=== PATIENT | female | born 1975 | race Caucasian/White ===

== ENCOUNTER 2019-08-09 09:55 | Emergency (ER) | payer BC ==
--- NOTE | 2019-08-09 09:58 | ERPHSYRPT ---
- History of Present Illness Time Seen by Provider: 08/09/19 09:58 Historian: patient Exam Limitations: no limitations Physician History: 43 y/o white female on no meds, nkda presents with substernal central nonradiating cp described as pressure with associated high bp. pt has a family hx of cadz. she is not a smoker. pt felt dizzy as though she was going to pass out. bp taken and was high so told to go to ed. no fall and no head trauma. 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 she is always unsure when he is going to lash out. worse since spring started. pt has a h/o leukocytosis Timing/Duration: today Activities at Onset: none Quality: pressure Location: substernal, central Chest Pain Radiation: no radiation Severity of Pain-Max: mild Severity of Pain-Current: none Modifying Factors: Improves With: nothing Associated Symptoms: dizziness Prior Chest Pain/Cardiac Workup: no prior chest pain Nitro Today/Relief: no nitro taken today Aspirin Treatment Today: no aspirin today Allergies/Adverse Reactions: No Known Drug Allergies Allergy (Unverified 08/09/19 10:07) Home Medications: No Reportable Medications [No Reported Medications] 08/09/19 [History] - Review of Systems Constitutional: No Symptoms Eyes: No Symptoms Ears, Nose, & Throat: No Symptoms Respiratory: No Symptoms Cardiac: Chest Pain Abdominal/Gastrointestinal: No Symptoms Genitourinary Symptoms: No Symptoms Musculoskeletal: No Symptoms Skin: No Symptoms Neurological: Dizziness Psychological: No Symptoms Endocrine: No Symptoms Hematologic/Lymphatic: No Symptoms Immunological/Allergic: No Symptoms All Other Systems: Reviewed and Negative - Past Medical History Neurological History: No Pertinent History Cardiac History: No Pertinent History Respiratory History: No Pertinent History Endocrine Medical History: No Pertinent History Other Medical History: WBC HAS BEEN ELEVATED WHICH IS BEING MONITORED - Past Surgical History Past Surgical History: No Neuro Surgical History: No Pertinent History Cardiac: No Pertinent History Respiratory: No Pertinent History Gastrointestinal: No Pertinent History Genitourinary: No Pertinent History Musculoskeletal: No Pertinent History Female Surgical History: No Pertinent History - Nursing Vital Signs Nursing Vital Signs: Initial Vital Signs Temperature 97.2 F 08/09/19 09:59 Pulse Rate 115 H 08/09/19 09:59 Respiratory Rate 18 08/09/19 09:59 O2 Sat by Pulse Oximetry 96 08/09/19 09:59 Pain Scale Pain Intensity 2 - Physical Exam General Appearance: no apparent distress, alert, anxiety Eye Exam: PERRL/EOMI, eyes nml inspection Ears, Nose, Throat Exam: normal ENT inspection, moist mucous membranes Neck Exam: normal inspection, non-tender, supple, full range of motion Respiratory Exam: normal breath sounds, chest tenderness, lungs clear, airway intact, No respiratory distress Cardiovascular Exam: regular rate/rhythm, normal heart sounds, normal peripheral pulses Gastrointestinal/Abdomen Exam: soft, normal bowel sounds, No tenderness Pelvic Exam: not done Rectal Exam: not done Back Exam: normal inspection, normal range of motion, No CVA tenderness, No vertebral tenderness Extremity Exam: normal inspection, normal range of motion, pelvis stable Neurologic Exam: alert, oriented x 3, cooperative, can tender II-XII nml as tested, normal mood/affect, nml cerebellar function, nml station & gait, sensation nml Skin Exam: normal color, warm, dry Lymphatic Exam: No adenopathy SpO2 Interpretation: normal O2 Delivery: Room Air - Course Nursing assessment & vital signs reviewed: Yes EKG Interpreted by Me: RATE (93), Sinus Rhythm, NORMAL AXIS, NORMAL INTERVALS, NORMAL QRS, Non-specific ST Changes, Other (no comparison ekg) Ordered Tests: Active Orders 24 hr Category Date Time Status EKG-ER Only STAT Care 08/09/19 10:18 Active IV Insertion STAT Care 08/09/19 10:18 Active Pulse Oximetry (ED) STAT Care 08/09/19 10:18 Active CHEST 1 VIEW (PORTABLE) Stat Exams 08/09/19 10:18 Completed HEAD WITHOUT CONTRAST [CT] Stat Exams 08/09/19 10:24 Completed CBC W DIFF Stat Lab 08/09/19 10:22 Completed CMP Stat Lab 08/09/19 10:22 Completed D-DIMER QUANTITATIVE Stat Lab 08/09/19 10:22 Completed NT PRO BNP Stat Lab 08/09/19 10:22 Completed PROTIME WITH INR Stat Lab 08/09/19 10:22 Completed TROPONIN Q3H Lab 08/09/19 10:22 Completed TROPONIN Q3H Lab 08/09/19 13:30 Ordered TROPONIN Q3H Lab 08/09/19 16:30 Ordered TROPONIN Q3H Lab 08/09/19 19:30 Ordered TROPONIN Q3H Lab 08/09/19 22:30 Ordered Medication Summary Discontinued Medications Generic Name Dose Route Start Last Admin Trade Name Terrance PRN Reason Stop Dose Admin Aspirin 324 mg 08/09/19 10:18 08/09/19 10:23 Baby Aspirin 81 Mg Chew PO 08/09/19 10:19 324 mg STAT ONE Administration Aspirin Confirm 08/09/19 10:20 Baby Aspirin 81 Mg Chew Administered 08/09/19 10:21 Dose 324 mg .ROUTE .STK-MED ONE Lab/Rad Data: Laboratory Result Diagrams 08/09/19 10:22 08/09/19 10:22 Laboratory Results 08/09/19 08/09/19 08/09/19 Range/Units 10:22 10:22 10:22 WBC (4.0-10.5) K/mm3 RBC (4.1-5.4) M/mm3 Hgb (12.0-16.0) gm/dl Hct (35-47) % MCV (78-100) fl MCH (26-32) pg MCHC (32-36) g/dl RDW (11.5-14.0) % Plt Count (150-450) K/mm3 MPV (7.5-11.0) fl Gran % (36.0-66.0) % Eos # (Auto) (0-0.5) Absolute Lymphs (auto) (1.0-4.6) Absolute Monos (auto) (0.0-1.3) Lymphocytes % (24.0-44.0) % Monocytes % (0.0-12.0) % Eosinophils % (0.00-5.0) % Basophils % (0.0-0.4) % Absolute Granulocytes (1.4-6.9) Basophils # (0-0.4) PT 12.2 (9.95-12.35) SECONDS INR 1.08 (0.8-3.0) D-Dimer 388 (215-500) ng/mL Sodium 141 (137-145) mmol/L Potassium 3.8 (3.5-5.1) mmol/L Chloride 104 (98-107) mmol/L Carbon Dioxide 24 (22-30) mmol/L Anion Gap 16.1 H (5-15) MEQ/L BUN 8 (7-17) mg/dL Creatinine 0.54 (0.52-1.04) mg/dL Estimated GFR > 60.0 ML/MIN Glucose 112 H (74-106) mg/dL Calcium 9.4 (8.4-10.2) mg/dL Total Bilirubin 0.40 (0.2-1.3) mg/dL AST 28 (14-36) U/L ALT 29 (0-35) U/L Alkaline Phosphatase 79 (38-126) U/L Troponin I < 0.012 (0.000-0.034) ng/mL NT-Pro-B Natriuret Pep 21.8 (0-450) pg/mL Serum Total Protein 8.3 H (6.3-8.2) g/dL Albumin 4.5 (3.5-5.0) g/dL 08/09/19 Range/Units 10:22 WBC 8.1 (4.0-10.5) K/mm3 RBC 4.07 L (4.1-5.4) M/mm3 Hgb 12.2 (12.0-16.0) gm/dl Hct 37.3 (35-47) % MCV 91.6 (78-100) fl MCH 30.0 (26-32) pg MCHC 32.7 (32-36) g/dl RDW 13.3 (11.5-14.0) % Plt Count 419 (150-450) K/mm3 MPV 9.9 (7.5-11.0) fl Gran % 52.3 (36.0-66.0) % Eos # (Auto) 0.35 (0-0.5) Absolute Lymphs (auto) 2.76 (1.0-4.6) Absolute Monos (auto) 0.69 (0.0-1.3) Lymphocytes % 34.0 (24.0-44.0) % Monocytes % 8.5 (0.0-12.0) % Eosinophils % 4.3 (0.00-5.0) % Basophils % 0.9 (0.0-0.4) % Absolute Granulocytes 4.24 (1.4-6.9) Basophils # 0.07 (0-0.4) PT (9.95-12.35) SECONDS INR (0.8-3.0) D-Dimer (215-500) ng/mL Sodium (137-145) mmol/L Potassium (3.5-5.1) mmol/L Chloride (98-107) mmol/L Carbon Dioxide (22-30) mmol/L Anion Gap (5-15) MEQ/L BUN (7-17) mg/dL Creatinine (0.52-1.04) mg/dL Estimated GFR ML/MIN Glucose (74-106) mg/dL Calcium (8.4-10.2) mg/dL Total Bilirubin (0.2-1.3) mg/dL AST (14-36) U/L ALT (0-35) U/L Alkaline Phosphatase (38-126) U/L Troponin I (0.000-0.034) ng/mL NT-Pro-B Natriuret Pep (0-450) pg/mL Serum Total Protein (6.3-8.2) g/dL Albumin (3.5-5.0) g/dL - Progress Progress: improved Air Movement: good Progress Note: 08/09/19 11:37 bp improved significantly without intervention. ct head-no acute process; cxr-no acute process. pt denies cp 08/09/19 11:37 Blood Culture(s) Obtained: No Antibiotics given: No Counseled pt/family regarding: lab results, diagnosis, need for follow-up, rad results - Departure Departure Disposition: Home Clinical Impression: Hypertension, Chest pain, Dizziness, Anxiety Condition: Stable Critical Care Time: No Referrals: TAHIR GUAJARDO [Primary Care Provider] - Additional Instructions: follow up with primary doctor for further management
[2019-08-09] MEDS ORDERED: BABY ASPIRIN 81 MG CHEW PO ONE (10:18)
[2019-08-09] MEDS ORDERED: BABY ASPIRIN 81 MG CHEW ONE (10:20)
[2019-08-09 10:32] LABS: Absolute Neutrophil Ct (ANC) 4.24 (1.4-6.9); BASOPHIL % 0.9 % (0.0-0.4); Basophil (Absolute #) 0.07 (0-0.4); Eosinophil % 4.3 % (0.00-5.0); Eosinophil (Absolute #) 0.35 (0-0.5); Hematocrit 37.3 % (35-47); Hemoglobin 12.2 gm/dl (12.0-16.0); Lymphocyte (Absolute #) 2.76 (1.0-4.6); Mean Cell Volume 91.6 fl (78-100); Mean Corpuscular Hgb Concent. 32.7 g/dl (32-36); Mean Platelet Volume 9.9 fl (7.5-11.0); Monocyte (Absolute #) 0.69 (0.0-1.3); Monocytes % 8.5 % (0.0-12.0); Neutrophil % 52.3 % (36.0-66.0); Platelet Count 419 K/mm3 (150-450); Red Blood Count 4.07 M/mm3 (4.1-5.4); Red Cell Distribution Width 13.3 % (11.5-14.0); White Blood Count 8.1 K/mm3 (4.0-10.5)
[2019-08-09 10:38] LABS: INR 1.08 (0.8-3.0); PROTIME 12.2 SECONDS (9.95-12.35)
--- NOTE | 2019-08-09 10:49 | XRAY ---
Indication: Chest pain 3 hours. Comparison: None Portable chest demonstrates normal heart, lungs, and bony thorax.
[2019-08-09 10:52] LABS: ALBUMIN 4.5 g/dL (3.5-5.0); ALKALINE PHOSPHATASE 79 U/L (38-126); ANION GAP 16.1 MEQ/L (5-15); BLOOD UREA NITROGEN 8 mg/dL (7-17); CHLORIDE 104 mmol/L (98-107); Calcium 9.4 mg/dL (8.4-10.2); Carbon Dioxide 24 mmol/L (22-30); Creatinine 1 0.54 mg/dL (0.52-1.04); Glucose 112 mg/dL (74-106); NT PRO BNP 21.8 pg/mL (0-450); Potassium 3.8 mmol/L (3.5-5.1); SGOT/AST 28 U/L (14-36); SGPT/ALT 29 U/L (0-35); SODIUM 141 mmol/L (137-145); Total Protein 8.3 g/dL (6.3-8.2)
--- NOTE | 2019-08-09 11:19 | XRAY ---
Indication: Dizziness. High blood pressure. Multiple contiguous axial images obtained through the head without contrast. Comparison: None Normal appearing brain parenchyma, ventricles, and bony calvarium. Visualized paranasal sinuses and mastoid air cells are clear. Impression: Normal CT head without contrast exam.
[2019-08-09 11:53] VITALS: BP 143/88; PULSE 80; O2SAT 97
== END 2019-08-09 12:07 | disposition home or self-care (01) ==
LOC: ED 09:55
DX: I10 Essential (primary) hypertension (principal); R07.9 Chest pain, unspecified; R42 Dizziness and giddiness; F41.9 Anxiety disorder, unspecified
CPT/HCPCS: 36000; 36415; 70450; 71045; 80053; 83880; 84484; 85025; 85379; 85610; 93005; 94760; 99284; A9270-GY